=== PATIENT | female | born 1990 | race African-American/Black ===

== ENCOUNTER 2021-12-18 07:08 | Emergency (ER) | payer OTHER ==
[~2021-12-18] VITALS: Ht 154.9 cm; Wt 146.0 kg
[2021-12-18 07:15] VITALS: BP 106/50
[2021-12-18] MEDS ORDERED: ONDANSETRON 4MG ODT PO ONE (07:45)
[2021-12-18 08:11] LABS: CLARITY URINE CLEAR (CLEAR); COLOR URINE YELLOW (YELLOW); KETONES URINE NEGATIVE (NEGATIVE); LEUKOCYTE ESTERASE URINE 1+ (NEGATIVE); NITRITE URINE NEGATIVE (NEGATIVE); OCCULT BLOOD URINE NEGATIVE (NEGATIVE); PH URINE 6.5 (4.5-8.0); PROTEIN URINE NEGATIVE (NEGATIVE); SPECIFIC GRAVITY URINE 1.012 (1.005-1.030); UROBILINOGEN URINE 0.2 E.U./dL (0.2-1.0)
[2021-12-18 08:11] LABS: BASOPHILS % 0.7 % (0.0-2.0); EOSINOPHILS % 1.1 % (0.0-5.0); HEMATOCRIT. 41.4 % (36.0-48.0); HEMOGLOBIN. 13.7 g/dL (12.0-16.0); LYMPHOCYTES % 22.8 % (20.0-50.0); MEAN CORPUSCULAR HEMOGLOBIN 32.2 pg (28.0-32.0); MEAN CORPUSCULAR VOLUME 97.1 fL (81.0-99.0); MEAN PLATELET VOLUME 7.9 fl (7.4-10.4); NEUTROPHILS % 67.4 % (40.0-76.0); PLATELET 291 x1000/uL (130-400); RED BLOOD CELL COUNT 4.26 mill/uL (4.2-5.4); RED CELL DISTRIBUTION WIDTH 14.6 % (11.6-14.6)
[2021-12-18 08:16] LABS: CHLORIDE 108 mEq/L (98-107)
[2021-12-18 08:20] LABS: HCG SCREEN NEGATIVE
[2021-12-18 08:25] LABS: B-HCG QUANTITATIVE < 1 mIU/mL (<3)
[2021-12-18] MEDS ORDERED: ONDA4TAB50 PO (09:11)
[2021-12-18] MEDS ORDERED: IBUP-2030 PO (09:11)
== END 2021-12-18 09:18 | disposition home or self-care (01) ==
LOC: ER 07:08
DX: N93.8 Other specified abnormal uterine and vaginal bleeding (principal); R11.2 Nausea with vomiting, unspecified
CPT/HCPCS: 36415; 76830; 76856; 80053; 81003; 81025; 84702; 84703; 85025; 86850; 86900; 86901; 99284; Q0162

== ENCOUNTER 2021-12-31 09:44 | Emergency (ER) | payer OTHER ==
[~2021-12-31] VITALS: Ht 167.6 cm; Wt 68.0 kg
[~2021-12-31 09:44] MED LIST: IBUP-2030 PO; ONDA4TAB50 PO
[2021-12-31 10:06] VITALS: BP 102/58
[2021-12-31] MEDS ORDERED: IBUP-2028 MT (11:28)
== END 2021-12-31 12:34 | disposition home or self-care (01) ==
LOC: ER 09:44
DX: S63.616A Unspecified sprain of right little finger, initial encounter (principal); X58.XXXA Exposure to other specified factors, initial encounter; Y93.89 Activity, other specified; Y92.89 Other specified places as the place of occurrence of the external cause; Y99.8 Other external cause status
CPT/HCPCS: 29130; 73130; 99283

== ENCOUNTER 2024-10-30 22:49 | Emergency (ER) | payer MEDICAID, OTHER ==
[~2024-10-30] VITALS: Ht 165.1 cm; Wt 75.0 kg
[~2024-10-30 22:49] MED LIST changes: +IBUP-2028 MT
[2024-10-30 22:53] VITALS: O2SAT 97
[2024-10-30 23:04] VITALS: BP 117/64; PULSE 77; RESP 18; TEMP 36.6; O2SAT 97
[2024-10-31] MEDS ORDERED: CLIN-194 MT (00:27)
[2024-10-31] MEDS: CLINDAMYCIN HCL 150MG CAPSULE PO ONE (00:35)
[2024-10-31 00:47] LABS: CLARITY URINE CLOUDY (CLEAR); COLOR URINE YELLOW (YELLOW)
[2024-10-31 00:48] LABS: GLUCOSE URINE NEGATIVE (NEGATIVE); KETONES URINE TRACE (NEGATIVE); NITRITE URINE NEGATIVE (NEGATIVE); OCCULT BLOOD URINE NEGATIVE (NEGATIVE); PH URINE 6.0 (4.5-8.0); PROTEIN URINE NEGATIVE (NEGATIVE); SPECIFIC GRAVITY URINE 1.020 (1.005-1.030); UROBILINOGEN URINE .02 E.U./dL (0.2-1.0)
[2024-10-31 00:49] LABS: LEUKOCYTE ESTERASE URINE 3+ (NEGATIVE)
[2024-10-31 03:15] LABS: SQUAMOUS EPITHELIAL CELL URINE 1+ /lpf (RARE/1+)
[2024-10-31 03:16] LABS: WBC URINE 15-25 /hpf (0-2)
[2024-10-31 03:17] LABS: RBC URINE 0-2 /hpf (0-2)
[2024-10-31 03:18] LABS: BACTERIA URINE TRACE
== END 2024-10-31 00:45 | disposition home or self-care (01) ==
LOC: ER 22:49
DX: H57.12 Ocular pain, left eye (principal); Z79.1 Long term (current) use of non-steroidal anti-inflammatories (NSAID); Z88.0 Allergy status to penicillin; Z88.6 Allergy status to analgesic agent; Z79.899 Other long term (current) drug therapy
CPT/HCPCS: 81003; 99283